=== PATIENT | male | born 1950 | race Two or more races ===

== ENCOUNTER 2016-05-09 17:05 | Inpatient (IN) | payer BC, MEDICARE ==
[~2016-05-09] VITALS: Ht 165.1 cm; Wt 62.6 kg
[2016-05-09 17:50] VITALS: BP 132/70
[2016-05-09 18:03] LABS: BASOPHILS # (AUTO) 0.1 /CMM (0.0-0.2); BASOPHILS % (AUTO) 0.7 % (0.0-2.0); DIFF TOTAL % 100 %; EOSINOPHILS # (AUTO) 0.1 /CMM (0.0-0.7); EOSINOPHILS % (AUTO) 1.5 % (0.0-6.0); HEMATOCRIT 31 % (39-51); LYMPHOCYTES # (AUTO) 1.3 /CMM (0.8-4.8); LYMPHOCYTES % (AUTO) 13.9 % (20.0-44.0); MEAN CORPUSCULAR HEMOGLOBIN 29 PG (26.0-33.0); MEAN CORPUSCULAR HGB CONC 33 g/dl (31.0-36.0); MEAN CORPUSCULAR VOLUME 89 fL (80-96); MONOCYTES # (AUTO) 0.8 /CMM (0.1-1.30); MONOCYTES % (AUTO) 8.2 % (2.0-12.0); NEUTROPHILS # (AUTO) 7.1 /CMM (1.8-8.9); NEUTROPHILS % (AUTO) 75.7 % (43.0-81.0); PLATELET COUNT (AUTO) 565 /CMM (150-450); RED BLOOD CELL COUNT(AUTO) 3.44 MIL/uL (4.5-6.0); WHITE BLOOD COUNT (AUTO) 9.4 K/uL (4.3-11.0)
[2016-05-09 18:06] LABS: ALBUMIN 2.7 g/dL (3.4-5.0); BILIRUBIN,DIRECT 0.1 mg/dL (0.0-0.2); BILIRUBIN,TOTAL 0.6 mg/dL (0.2-1.0); CALCIUM, SERUM 9.2 mg/dL (8.5-10.1); INDIRECT BILIRUBIN 0.5 mg/dL (0.0-1.1); POTASSIUM 4.9 mmol/L (3.5-5.1); TOTAL PROTEIN, SERUM 7.7 g/dL (6.4-8.2)
[2016-05-09 18:07] LABS: INR 1.18 (0.87-1.13); PROTHROMBIN TIME 12.4 SECS (9.5-12.7)
[2016-05-09 18:08] LABS: TROPONIN I 0.026 ng/mL (0.00-0.056)
[2016-05-09 18:17] LABS: CREATININE 9.8 mg/dL (0.6-1.3)
[2016-05-09 18:25] LABS: LACTIC ACID 0.5 mmol/L (0.4-2.0)
[2016-05-09] MEDS ORDERED: ACETAMINOPHEN 650 MG/20.3 ML UDC ONE (18:47)
[2016-05-09] MEDS ORDERED: IV NS 0.9% 1,000 ML ONE (18:47)
[2016-05-09] MEDS ORDERED: IV SET PRIMARY 1 EA INFUS.SET MC ONE (18:47)
[2016-05-09] MEDS ORDERED: ACETAMINOPHEN ES 500 MG TABLET PO ONE (19:00)
[2016-05-09] MEDS ORDERED: VANCOMYCIN 1 GM in IV D5W 250 ML IV ONE (19:00)
[2016-05-09] MEDS ORDERED: PIPERACILLIN /TAZOBACTAM 3.375 G in IV D5W 50 ML IV ONE (19:00)
[2016-05-09] MEDS ORDERED: IV NS 0.9% 1,000 ML BAG IV ONE (19:00)
[2016-05-09] MEDS ORDERED: ACETAMINOPHEN 160 MG/5 ML GT ONE (19:00)
[2016-05-09] MEDS ORDERED: PIPERACILLIN /TAZOBACTAM 2.25 G in IV D5W 50 ML IV ONE (19:00)
[2016-05-09] MEDS ORDERED: IV SET PRIMARY PUMP SET 1 EA INFUS.SET MC ONE ×2 (19:40→23:36)
[2016-05-09] MEDS ORDERED: ACETAMINOPHEN 325 MG TABLET PO PRN (20:00)
[2016-05-09] MEDS ORDERED: VANCOMYCIN 1 GM in IV D5W 250 ML IV PRN (20:00)
[2016-05-09] MEDS ORDERED: ZOLPIDEM TARTRATE 5 MG TABLET PO PRN (20:00)
[2016-05-09] MEDS ORDERED: HYDROCODONE/APAP 5/325MG 1 EACH TABLET PO PRN (20:00)
[2016-05-09] MEDS ORDERED: Z GUARD REMEDY 2 OZ OINT TP PRN (20:00)
[2016-05-09] MEDS ORDERED: ONDANSETRON HCL/PF 4 MG/2 ML VIAL IVP PRN (20:00)
[2016-05-09] MEDS ORDERED: FEE PK DOSING 1 MIN EA MC ONE (20:17)
[2016-05-09 20:30] VITALS: BP 135/65
[2016-05-09] MEDS ORDERED: FOLI1TAB16 PO (21:06)
[2016-05-09] MEDS ORDERED: EPOE1VIA IJ (21:06)
[2016-05-09] MEDS ORDERED: DOXA2TAB2 PO (21:06)
[2016-05-09] MEDS ORDERED: SEVE0.8P PO (21:06)
[2016-05-09] MEDS ORDERED: VALS160T24 PO (21:06)
[2016-05-09] MEDS ORDERED: CLON0.1T PO (21:06)
[2016-05-09] MEDS ORDERED: PANT40SU2 GT (21:06)
[2016-05-09] MEDS ORDERED: PHEN180S18 MM (21:06)
[2016-05-09] MEDS ORDERED: SENN8.6T6 PO (21:06)
[2016-05-09] MEDS ORDERED: PHEN177S31 MM (21:06)
[2016-05-09] MEDS ORDERED: LACT1CAP69 PO (21:06)
[2016-05-09] MEDS ORDERED: OXYC5TAB3 PO (21:06)
[2016-05-09] MEDS ORDERED: HYDR-4077 PO (21:06)
[2016-05-09] MEDS ORDERED: INSU100C10 SQ (21:06)
[2016-05-09] MEDS ORDERED: METO25TA6 PO (21:06)
[2016-05-09] MEDS ORDERED: LEVE100S2 PO (21:06)
[2016-05-09] MEDS ORDERED: PROT946L PO (21:06)
[2016-05-09] MEDS ORDERED: INSU3INS6 SUBCUT (21:06)
[2016-05-09] MEDS ORDERED: AMLO5TAB2 PO (21:06)
[2016-05-09] MEDS ORDERED: NUTR100037 PO (21:18)
[2016-05-09] MEDS ORDERED: DEXTROSE 50%-WATER 50 ML DISP.SYRIN IV PRN (22:00)
[2016-05-09] MEDS ORDERED: RENAL NOVASOURCE 1,000 ML BOTTLE GT PRN (22:30)
[2016-05-09] MEDS ORDERED: IV NS 0.9% 250 ML IV ONE (23:36)
[2016-05-09] MEDS ORDERED: SECONDARY IV SET 1 EA INFUS.SET MC ONE (23:36)
[2016-05-09] MEDS: PIPERACILLIN /TAZOBACTAM 2.25 G in IV D5W 50 ML IV SCH (23:44)
[2016-05-09] MEDS: BLOOD SUGAR DIAGNOSTIC 1 EACH STRIP IN SCH (23:53)
[2016-05-10] VITALS (7 sets, daily range): BP systolic 135–162; BP diastolic 62–83
[2016-05-10] MEDS ORDERED: PIPERACILLIN /TAZOBACTAM 4.5 G in IV D5W 50 ML IV SCH ×2
[2016-05-10] MEDS: INSULIN REGULAR, HUMAN 100 UNIT/ML 3 ML VIAL SQ PRN ×4 (00:05→17:17)
[2016-05-10] MEDS: BLOOD SUGAR DIAGNOSTIC 1 EACH STRIP IN SCH ×3 (05:18→17:19)
[2016-05-10] MEDS: PIPERACILLIN /TAZOBACTAM 2.25 G in IV D5W 50 ML IV SCH ×3 (05:18→17:16)
[2016-05-10 07:42] LABS: BASOPHILS % (AUTO) 0.5 % (0.0-2.0); DIFF TOTAL % 100 %; EOSINOPHILS # (AUTO) 0.3 /CMM (0.0-0.7); HEMATOCRIT 29 % (39-51); HEMOGLOBIN 9.5 g/dL (13.5-17.5); LYMPHOCYTES # (AUTO) 0.8 /CMM (0.8-4.8); MEAN CORPUSCULAR HEMOGLOBIN 29 PG (26.0-33.0); MEAN CORPUSCULAR HGB CONC 33 g/dl (31.0-36.0); MEAN CORPUSCULAR VOLUME 90 fL (80-96); MONOCYTES # (AUTO) 0.7 /CMM (0.1-1.30); MONOCYTES % (AUTO) 7.3 % (2.0-12.0); NEUTROPHILS # (AUTO) 7.5 /CMM (1.8-8.9); NEUTROPHILS % (AUTO) 80.2 % (43.0-81.0); PLATELET COUNT (AUTO) 494 /CMM (150-450); RED BLOOD CELL COUNT(AUTO) 3.23 MIL/uL (4.5-6.0); WHITE BLOOD COUNT (AUTO) 9.4 K/uL (4.3-11.0)
[2016-05-10 08:18] LABS: CALCIUM, SERUM 8.8 mg/dL (8.5-10.1); POTASSIUM 4.7 mmol/L (3.5-5.1)
[2016-05-10 08:20] LABS: CREATININE 10.1 mg/dL (0.6-1.3)
[2016-05-10 08:29] LABS: PHOSPHORUS 9.3 mg/dL (2.5-4.9)
[2016-05-10] MEDS ORDERED: LEVETIRACETAM SOL (5 ML) 100 MG/ML UDC PO SCH (09:00)
[2016-05-10] MEDS: SEVELAMER CARBONATE 0.8 GM POWD.PACK PO SCH ×3 (09:23→17:15)
[2016-05-10] MEDS: SENNOSIDES 8.6 MG TABLET PO SCH (09:23)
[2016-05-10] MEDS: FOLIC ACID 1 MG TABLET PO SCH (09:23)
[2016-05-10] MEDS: PANTOPRAZOLE 40 MG VIAL IV SCH (09:23)
[2016-05-10] MEDS: hydrALAZINE HCL 50 MG TABLET PO SCH ×3 (09:24→17:16)
[2016-05-10] MEDS: AMLODIPINE BESYLATE 5 MG TABLET PO SCH (09:24)
[2016-05-10] MEDS ORDERED: Z GUARD REMEDY 2 OZ OINT TP PRN (10:00)
[2016-05-10] MEDS ORDERED: RENAL NOVASOURCE 1,000 ML BOTTLE GT PRN ×2 (10:00→19:00)
[2016-05-10] MEDS: HYDROGEL DRESSING 90 GM TUBE TP SCH (12:12)
[2016-05-10] MEDS: LEVETIRACETAM SOL (5 ML) 100 MG/ML UDC GT SCH ×2 (12:12→21:45)
[2016-05-10] MEDS: Z GUARD REMEDY 2 OZ OINT TP SCH (17:16)
[2016-05-10] MEDS: LACTOBACILLUS RHAMNOSUS GG 1 EACH CAP.SPRINK GT SCH (18:49)
[2016-05-11] VITALS (7 sets, daily range): BP systolic 116–160; BP diastolic 55–83
[2016-05-11] MEDS ORDERED: IV NS 0.9% 250 ML IV ONE (00:08)
[2016-05-11] MEDS: PIPERACILLIN /TAZOBACTAM 2.25 G in IV D5W 50 ML IV SCH ×4 (00:18→20:57)
[2016-05-11] MEDS: BLOOD SUGAR DIAGNOSTIC 1 EACH STRIP IN SCH ×5 (00:18→23:11)
[2016-05-11] MEDS: INSULIN REGULAR, HUMAN 100 UNIT/ML 3 ML VIAL SQ PRN ×4 (00:24→23:15)
[2016-05-11] MEDS: CLONIDINE HCL 0.1 MG TABLET PO PRN (06:21)
[2016-05-11] MEDS ORDERED: SECONDARY IV SET 1 EA INFUS.SET MC ONE (07:25)
[2016-05-11] MEDS: VANCOMYCIN 500 MG in IV D5W 100 ML IV PRN (07:26)
[2016-05-11 07:51] LABS: CALCIUM, SERUM 8.6 mg/dL (8.5-10.1); CREATININE 7.4 mg/dL (0.6-1.3); POTASSIUM 4.2 mmol/L (3.5-5.1)
[2016-05-11] MEDS: LEVETIRACETAM SOL (5 ML) 100 MG/ML UDC GT SCH ×2 (09:01→20:57)
[2016-05-11] MEDS: FOLIC ACID 1 MG TABLET PO SCH (09:01)
[2016-05-11] MEDS: SENNOSIDES 8.6 MG TABLET PO SCH (09:01)
[2016-05-11] MEDS: LACTOBACILLUS RHAMNOSUS GG 1 EACH CAP.SPRINK GT SCH ×2 (09:01→17:44)
[2016-05-11] MEDS: SEVELAMER CARBONATE 0.8 GM POWD.PACK PO SCH ×3 (09:01→17:44)
[2016-05-11] MEDS: HYDROGEL DRESSING 90 GM TUBE TP SCH (09:02)
[2016-05-11] MEDS: hydrALAZINE HCL 50 MG TABLET PO SCH ×3 (09:02→17:44)
[2016-05-11] MEDS: AMLODIPINE BESYLATE 5 MG TABLET PO SCH (09:02)
[2016-05-11] MEDS: PANTOPRAZOLE 40 MG VIAL IV SCH (09:03)
[2016-05-11] MEDS: Z GUARD REMEDY 2 OZ OINT TP SCH ×2 (09:04→17:44)
[2016-05-12] VITALS (7 sets, daily range): BP systolic 109–186; BP diastolic 53–80
[2016-05-12] MEDS ORDERED: IV D5W 100 ML IV ONE (00:31)
[2016-05-12] MEDS ORDERED: VANCOMYCIN 1 GM VIAL ONE (00:31)
[2016-05-12] MEDS: VANCOMYCIN 500 MG in IV D5W 100 ML IV PRN (01:12)
[2016-05-12] MEDS: PIPERACILLIN /TAZOBACTAM 2.25 G in IV D5W 50 ML IV SCH ×4 (03:00→17:09)
[2016-05-12] MEDS: BLOOD SUGAR DIAGNOSTIC 1 EACH STRIP IN SCH ×3 (05:19→17:16)
[2016-05-12] MEDS: INSULIN REGULAR, HUMAN 100 UNIT/ML 3 ML VIAL SQ PRN ×3 (05:21→17:11)
[2016-05-12] MEDS: CLONIDINE HCL 0.1 MG TABLET PO PRN (05:21)
[2016-05-12 07:50] LABS: POTASSIUM 3.8 mmol/L (3.5-5.1)
[2016-05-12] MEDS: LEVETIRACETAM SOL (5 ML) 100 MG/ML UDC GT SCH (08:05)
[2016-05-12] MEDS: AMLODIPINE BESYLATE 5 MG TABLET PO SCH (08:05)
[2016-05-12] MEDS: hydrALAZINE HCL 50 MG TABLET PO SCH ×3 (08:05→16:29)
[2016-05-12] MEDS: SEVELAMER CARBONATE 0.8 GM POWD.PACK PO SCH ×3 (08:06→16:29)
[2016-05-12] MEDS: FOLIC ACID 1 MG TABLET PO SCH (08:06)
[2016-05-12] MEDS: PANTOPRAZOLE 40 MG VIAL IV SCH (08:06)
[2016-05-12] MEDS: LACTOBACILLUS RHAMNOSUS GG 1 EACH CAP.SPRINK GT SCH ×2 (08:06→16:29)
[2016-05-12] MEDS: SENNOSIDES 8.6 MG TABLET PO SCH (08:06)
[2016-05-12] MEDS: HYDROGEL DRESSING 90 GM TUBE TP SCH (08:15)
[2016-05-12] MEDS: Z GUARD REMEDY 2 OZ OINT TP SCH ×2 (08:16→16:35)
[2016-05-12] MEDS ORDERED: VANCOMYCIN 1 GM in IV D5W 250 ML IV PRN (09:00)
== END 2016-05-12 19:06 | DRG 871 ==
LOC: ER 17:07 → TELE1 19:28
PROVIDERS: ADMIT Internal Medicine; ATTEND Internal Medicine
PROC: 5A1945Z Respiratory Ventilation, 24-96 Consecutive Hours (ICD-10-PCS; principal; 2016-05-09)
PROC: 5A1D60Z (ICD-10-PCS; 2016-05-10)
DX: A41.9 Sepsis, unspecified organism (principal); N18.6 End stage renal disease; G93.40 Encephalopathy, unspecified; R53.2 Functional quadriplegia; I12.0 Hypertensive chronic kidney disease with stage 5 chronic kidney disease or end stage renal disease; E44.0 Moderate protein-calorie malnutrition; J96.11 Chronic respiratory failure with hypoxia; Z99.11 Dependence on respirator [ventilator] status; Z99.2 Dependence on renal dialysis; L89.152 Pressure ulcer of sacral region, stage 2; E88.09 Other disorders of plasma-protein metabolism, not elsewhere classified; D63.8 Anemia in other chronic diseases classified elsewhere; D63.1 Anemia in chronic kidney disease; E11.22 Type 2 diabetes mellitus with diabetic chronic kidney disease; E78.5 Hyperlipidemia, unspecified; K21.9 Gastro-esophageal reflux disease without esophagitis; R13.10 Dysphagia, unspecified; Z93.1 Gastrostomy status; F09 Unspecified mental disorder due to known physiological condition; Z86.73 Personal history of transient ischemic attack (TIA), and cerebral infarction without residual deficits; Q78.9 Osteochondrodysplasia, unspecified; Z68.23 Body mass index [BMI] 23.0-23.9, adult; Z93.0 Tracheostomy status; R65.20 Severe sepsis without septic shock
CPT/HCPCS: 31720; 36415; 71010-TC; 80048-TC; 80061-TC; 80076-TC; 80202-TC; 82962-TC; 83605-TC; 83735-TC; 84100-TC; 84484-TC; 85025-TC; 85730-TC; 87040-TC; 87081-TC; 87400; 90935-TC; 94003-TC; A4606; A6248; A6253; C9113; J1815; J1953; J2543; J3370; J7030; J7050; J7060; Z7610

== ENCOUNTER 2016-05-27 20:37 | Inpatient (IN) | payer BC, MEDICARE ==
[~2016-05-27] VITALS: Ht 172.7 cm; Wt 65.3 kg
[~2016-05-27 20:37] MED LIST: AMLO5TAB2 PO; CLON0.1T PO; DOXA2TAB2 PO; EPOE1VIA IJ; FOLI1TAB16 PO; HYDR-4077 PO; INSU100C10 SQ; INSU3INS6 SUBCUT; LACT1CAP69 PO; LEVE100S2 PO; METO25TA6 PO; NUTR100037 PO; OXYC5TAB3 PO; PANT40SU2 GT; PHEN177S31 MM; PHEN180S18 MM; PROT946L PO; SENN8.6T6 PO; SEVE0.8P PO; VALS160T24 PO
[2016-05-27 21:10] LABS: BASOPHILS % (AUTO) 0.4 % (0.0-2.0); DIFF TOTAL % 100 %; EOSINOPHILS # (AUTO) 0.1 /CMM (0.0-0.7); EOSINOPHILS % (AUTO) 2.3 % (0.0-6.0); HEMATOCRIT 29 % (39-51); HEMOGLOBIN 9.7 g/dL (13.5-17.5); LYMPHOCYTES # (AUTO) 0.7 /CMM (0.8-4.8); LYMPHOCYTES % (AUTO) 10.7 % (20.0-44.0); MEAN CORPUSCULAR HEMOGLOBIN 30 PG (26.0-33.0); MEAN CORPUSCULAR HGB CONC 33 g/dl (31.0-36.0); MEAN CORPUSCULAR VOLUME 90 fL (80-96); MONOCYTES # (AUTO) 0.3 /CMM (0.1-1.30); MONOCYTES % (AUTO) 5.4 % (2.0-12.0); NEUTROPHILS # (AUTO) 5.1 /CMM (1.8-8.9); NEUTROPHILS % (AUTO) 81.2 % (43.0-81.0); PLATELET COUNT (AUTO) 285 /CMM (150-450); RED BLOOD CELL COUNT(AUTO) 3.28 MIL/uL (4.5-6.0); WHITE BLOOD COUNT (AUTO) 6.2 K/uL (4.3-11.0)
[2016-05-27 21:17] VITALS: BP 145/66
[2016-05-27 21:21] LABS: CALCIUM, SERUM 9.9 mg/dL (8.5-10.1); POTASSIUM 3.7 mmol/L (3.5-5.1)
[2016-05-27 21:25] LABS: INR 1.01 (0.87-1.13); PROTHROMBIN TIME 10.6 SECS (9.5-12.7)
[2016-05-27] MEDS ORDERED: Z GUARD REMEDY 2 OZ OINT TP PRN (21:30)
[2016-05-27] MEDS ORDERED: MORPHINE SULFATE INJ 2 MG/ML DISP.SYRIN IV PRN (21:30)
[2016-05-27] MEDS ORDERED: MAGNESIUM HYDROXIDE 30 ML UDC PO PRN (21:30)
[2016-05-27] MEDS ORDERED: ACETAMINOPHEN 325 MG TABLET PO PRN (21:30)
[2016-05-27] MEDS ORDERED: ONDANSETRON HCL/PF 4 MG/2 ML VIAL IVP PRN (21:30)
[2016-05-27] MEDS ORDERED: MAG HYDROX/AL HYDROX/SIMETH 30 ML UDC PO PRN (21:30)
[2016-05-27] MEDS ORDERED: ZOLPIDEM TARTRATE 5 MG TABLET PO PRN (22:00)
[2016-05-27] MEDS ORDERED: EPOETIN ALFA (10,000 UNIT) 10,000 UNIT/ML VIAL IJ SCH (22:00)
[2016-05-27] MEDS ORDERED: CLONIDINE HCL 0.1 MG TABLET PO SCH (22:00)
[2016-05-27] MEDS ORDERED: DEXTROSE 50%-WATER 50 ML DISP.SYRIN IV PRN (22:00)
[2016-05-27] MEDS ORDERED: VALSARTAN 80 MG TABLET PO ONE (22:00)
[2016-05-27 22:09] LABS: CREATINE KINASE MB 1.3 ng/mL (0-3.6); THYROID STIMULATING HORMONE 2.667 uIU/mL (0.358-3.74)
[2016-05-27 22:40] VITALS: BP 157/77
[2016-05-28] MEDS ORDERED: IV D5/0.45 NACL 1,000 ML IV ONE (01:30)
[2016-05-28] MEDS ORDERED: IV SET PRIMARY PUMP SET 1 EA INFUS.SET MC ONE (01:30)
[2016-05-28] MEDS ORDERED: VALSARTAN 80 MG TABLET ONE (01:30)
[2016-05-28] MEDS ORDERED: METOPROLOL TARTRATE 25 MG TABLET ONE (01:31)
[2016-05-28] MEDS: IV D5/0.45 NACL 1,000 ML IV PRN ×2 (01:40→17:34)
[2016-05-28] MEDS: METOPROLOL TARTRATE 25 MG TABLET PO SCH ×3 (01:40→17:26)
[2016-05-28] MEDS ORDERED: hydrALAZINE HCL 50 MG TABLET ONE (04:58)
[2016-05-28] MEDS ORDERED: CLONIDINE HCL 0.1 MG TABLET ONE (04:58)
[2016-05-28] MEDS: hydrALAZINE HCL 50 MG TABLET PO SCH ×3 (05:04→17:26)
[2016-05-28 05:11] VITALS: BP 182/81
[2016-05-28] MEDS: BLOOD SUGAR DIAGNOSTIC 1 EACH STRIP IN SCH ×4 (05:51→17:25)
[2016-05-28] MEDS: INSULIN REGULAR, HUMAN 100 UNIT/ML 3 ML VIAL SQ PRN ×2 (05:59→13:37)
[2016-05-28 06:21] VITALS: BP 141/66
[2016-05-28 07:16] LABS: BASOPHILS % (AUTO) 0.4 % (0.0-2.0); DIFF TOTAL % 100 %; EOSINOPHILS # (AUTO) 0.1 /CMM (0.0-0.7); EOSINOPHILS % (AUTO) 2.4 % (0.0-6.0); HEMATOCRIT 27 % (39-51); HEMOGLOBIN 8.8 g/dL (13.5-17.5); LYMPHOCYTES # (AUTO) 0.6 /CMM (0.8-4.8); LYMPHOCYTES % (AUTO) 10.1 % (20.0-44.0); MEAN CORPUSCULAR HEMOGLOBIN 29 PG (26.0-33.0); MEAN CORPUSCULAR HGB CONC 33 g/dl (31.0-36.0); MEAN CORPUSCULAR VOLUME 88 fL (80-96); MONOCYTES # (AUTO) 0.4 /CMM (0.1-1.30); MONOCYTES % (AUTO) 5.8 % (2.0-12.0); NEUTROPHILS # (AUTO) 4.9 /CMM (1.8-8.9); NEUTROPHILS % (AUTO) 81.3 % (43.0-81.0); PLATELET COUNT (AUTO) 262 /CMM (150-450); RED BLOOD CELL COUNT(AUTO) 3.01 MIL/uL (4.5-6.0)
[2016-05-28 07:21] LABS: INR 1.03 (0.87-1.13); PROTHROMBIN TIME 11.1 SECS (9.5-12.7)
[2016-05-28] MEDS: PANTOPRAZOLE 40 MG/PACK PACK GT SCH (07:30)
[2016-05-28 08:01] LABS: ALBUMIN 2.4 g/dL (3.4-5.0); BILIRUBIN,TOTAL 0.4 mg/dL (0.2-1.0); CALCIUM, SERUM 9.2 mg/dL (8.5-10.1); CREATININE 6.1 mg/dL (0.6-1.3); PHOSPHORUS 3.8 mg/dL (2.5-4.9); POTASSIUM 3.6 mmol/L (3.5-5.1); TOTAL PROTEIN, SERUM 6.5 g/dL (6.4-8.2)
[2016-05-28 08:06] LABS: THYROID STIMULATING HORMONE 2.652 uIU/mL (0.358-3.74)
[2016-05-28] MEDS ORDERED: PANTOPRAZOLE 40 MG TABLET.DR PO SCH (08:07)
[2016-05-28] MEDS: SEVELAMER CARBONATE 0.8 GM POWD.PACK PO SCH (09:27)
[2016-05-28] MEDS: PHENOL/SODIUM PHENOLATE 1 BOTTLE MM SCH (09:27)
[2016-05-28] MEDS: LEVETIRACETAM SOL (5 ML) 100 MG/ML UDC PO SCH ×2 (09:27→17:25)
[2016-05-28] MEDS: FOLIC ACID 1 MG TABLET PO SCH (09:28)
[2016-05-28] MEDS: AMLODIPINE BESYLATE 5 MG TABLET PO SCH (09:28)
[2016-05-28] MEDS: CLONIDINE HCL 0.1 MG TABLET PO SCH (09:30)
[2016-05-28] MEDS: SENNOSIDES 8.6 MG TABLET PO SCH (09:30)
[2016-05-28 12:00] VITALS: BP 105/53
[2016-05-28] MEDS ORDERED: ALTEPLASE CATHFLO 2 MG/VIAL IV ONE (13:00)
[2016-05-28 16:00] VITALS: BP 144/63
[2016-05-28] MEDS: DOXAZOSIN MESYLATE (1 MG) 1 MG TABLET PO SCH (17:25)
[2016-05-28 20:00] VITALS: BP 143/74
[2016-05-28] MEDS: INSULIN DETEMIR 100 UNIT/ML CARTRIDGE SQ SCH (21:26)
[2016-05-29] VITALS (7 sets, daily range): BP systolic 104–170; BP diastolic 54–76
[2016-05-29] MEDS: INSULIN REGULAR, HUMAN 100 UNIT/ML 3 ML VIAL SQ PRN ×3 (01:00→23:18)
[2016-05-29] MEDS: BLOOD SUGAR DIAGNOSTIC 1 EACH STRIP IN SCH ×5 (06:00→23:17)
[2016-05-29 06:54] LABS: BASOPHILS % (AUTO) 0.4 % (0.0-2.0); DIFF TOTAL % 100 %; EOSINOPHILS # (AUTO) 0.1 /CMM (0.0-0.7); EOSINOPHILS % (AUTO) 0.7 % (0.0-6.0); HEMATOCRIT 25 % (39-51); HEMOGLOBIN 8.2 g/dL (13.5-17.5); LYMPHOCYTES # (AUTO) 0.8 /CMM (0.8-4.8); LYMPHOCYTES % (AUTO) 9.4 % (20.0-44.0); MEAN CORPUSCULAR HEMOGLOBIN 29 PG (26.0-33.0); MEAN CORPUSCULAR HGB CONC 33 g/dl (31.0-36.0); MEAN CORPUSCULAR VOLUME 90 fL (80-96); MONOCYTES # (AUTO) 0.5 /CMM (0.1-1.30); MONOCYTES % (AUTO) 5.8 % (2.0-12.0); NEUTROPHILS # (AUTO) 7.5 /CMM (1.8-8.9); NEUTROPHILS % (AUTO) 83.7 % (43.0-81.0); PLATELET COUNT (AUTO) 237 /CMM (150-450); RED BLOOD CELL COUNT(AUTO) 2.83 MIL/uL (4.5-6.0)
[2016-05-29] MEDS: PANTOPRAZOLE 40 MG/PACK PACK GT SCH (08:23)
[2016-05-29] MEDS: SEVELAMER CARBONATE 0.8 GM POWD.PACK PO SCH (08:48)
[2016-05-29] MEDS: LEVETIRACETAM SOL (5 ML) 100 MG/ML UDC PO SCH ×2 (08:48→17:33)
[2016-05-29] MEDS: SENNOSIDES 8.6 MG TABLET PO SCH (08:48)
[2016-05-29] MEDS: CLONIDINE HCL 0.1 MG TABLET PO SCH (08:49)
[2016-05-29] MEDS: FOLIC ACID 1 MG TABLET PO SCH (08:49)
[2016-05-29] MEDS: METOPROLOL TARTRATE 25 MG TABLET PO SCH ×2 (08:50→17:34)
[2016-05-29] MEDS: AMLODIPINE BESYLATE 5 MG TABLET PO SCH (08:50)
[2016-05-29] MEDS: hydrALAZINE HCL 50 MG TABLET PO SCH ×3 (08:50→17:34)
[2016-05-29] MEDS: PHENOL/SODIUM PHENOLATE 1 BOTTLE MM SCH (08:51)
[2016-05-29] MEDS: IV D5/0.45 NACL 1,000 ML IV PRN (09:02)
[2016-05-29 10:05] LABS: CALCIUM, SERUM 8.9 mg/dL (8.5-10.1); CREATININE 5.1 mg/dL (0.6-1.3); POTASSIUM 3.8 mmol/L (3.5-5.1)
[2016-05-29] MEDS ORDERED: DIATR MEGLU/DIATRIZOATE SODIUM 30 ML BOTTLE (GASTROGRAPHIN) ONE (12:03)
[2016-05-29] MEDS: DOXAZOSIN MESYLATE (1 MG) 1 MG TABLET PO SCH (17:33)
[2016-05-29] MEDS ORDERED: RENAL NOVASOURCE 1,000 ML BOTTLE GT SCH (19:00)
[2016-05-29] MEDS ORDERED: RENAL NOVASOURCE 1,000 ML BOTTLE ONE (21:54)
[2016-05-29] MEDS: INSULIN DETEMIR 100 UNIT/ML CARTRIDGE SQ SCH (22:14)
[2016-05-29] MEDS: RENAL NOVASOURCE 1,000 ML BOTTLE GT PRN (22:19)
[2016-05-30] VITALS (7 sets, daily range): BP systolic 100–162; BP diastolic 51–72
[2016-05-30] MEDS: IV D5/0.45 NACL 1,000 ML IV PRN (01:42)
[2016-05-30] MEDS: BLOOD SUGAR DIAGNOSTIC 1 EACH STRIP IN SCH ×3 (05:42→17:33)
[2016-05-30 06:25] LABS: CALCIUM, SERUM 9.3 mg/dL (8.5-10.1); CREATININE 4.6 mg/dL (0.6-1.3); PHOSPHORUS 3.2 mg/dL (2.5-4.9); POTASSIUM 3.3 mmol/L (3.5-5.1)
[2016-05-30 06:44] LABS: EOSINOPHILS # (AUTO) 0.1 /CMM (0.0-0.7); EOSINOPHILS % (AUTO) 2.2 % (0.0-6.0); HEMATOCRIT 28 % (39-51); HEMOGLOBIN 9.4 g/dL (13.5-17.5); LYMPHOCYTES # (AUTO) 0.7 /CMM (0.8-4.8); LYMPHOCYTES % (AUTO) 10.1 % (20.0-44.0); MEAN CORPUSCULAR HEMOGLOBIN 30 PG (26.0-33.0); MEAN CORPUSCULAR HGB CONC 33 g/dl (31.0-36.0); MEAN CORPUSCULAR VOLUME 89 fL (80-96); MONOCYTES # (AUTO) 0.6 /CMM (0.1-1.30); MONOCYTES % (AUTO) 9.2 % (2.0-12.0); NEUTROPHILS # (AUTO) 5.2 /CMM (1.8-8.9); NEUTROPHILS % (AUTO) 78.5 % (43.0-81.0); PLATELET COUNT (AUTO) 229 /CMM (150-450); RED BLOOD CELL COUNT(AUTO) 3.19 MIL/uL (4.5-6.0); WHITE BLOOD COUNT (AUTO) 6.6 K/uL (4.3-11.0)
[2016-05-30 07:04] LABS: DIFF TOTAL % 100 %
[2016-05-30] MEDS: PANTOPRAZOLE 40 MG/PACK PACK GT SCH (08:16)
[2016-05-30] MEDS: LEVETIRACETAM SOL (5 ML) 100 MG/ML UDC PO SCH ×2 (08:43→17:34)
[2016-05-30] MEDS: SEVELAMER CARBONATE 0.8 GM POWD.PACK PO SCH (08:44)
[2016-05-30] MEDS: FOLIC ACID 1 MG TABLET PO SCH (08:44)
[2016-05-30] MEDS: AMLODIPINE BESYLATE 5 MG TABLET PO SCH (08:44)
[2016-05-30] MEDS: SENNOSIDES 8.6 MG TABLET PO SCH (08:44)
[2016-05-30] MEDS: CLONIDINE HCL 0.1 MG TABLET PO SCH (08:44)
[2016-05-30] MEDS: hydrALAZINE HCL 50 MG TABLET PO SCH ×3 (08:45→17:34)
[2016-05-30] MEDS: METOPROLOL TARTRATE 25 MG TABLET PO SCH ×2 (08:45→17:34)
[2016-05-30] MEDS: PHENOL/SODIUM PHENOLATE 1 BOTTLE MM SCH (08:50)
[2016-05-30] MEDS: INSULIN REGULAR, HUMAN 100 UNIT/ML 3 ML VIAL SQ PRN ×2 (12:36→17:41)
[2016-05-30] MEDS: DOXAZOSIN MESYLATE (1 MG) 1 MG TABLET PO SCH (17:33)
[2016-05-30] MEDS ORDERED: POTASSIUM CHLORIDE 20 MEQ POWDER PACKET GT ONE (19:30)
[2016-05-30] MEDS: INSULIN DETEMIR 100 UNIT/ML CARTRIDGE SQ SCH (22:13)
[2016-05-30] MEDS: RENAL NOVASOURCE 1,000 ML BOTTLE GT PRN (22:27)
[2016-05-31] VITALS (7 sets, daily range): BP systolic 129–222; BP diastolic 54–86
[2016-05-31] MEDS: BLOOD SUGAR DIAGNOSTIC 1 EACH STRIP IN SCH ×5 (00:52→23:28)
[2016-05-31] MEDS: INSULIN REGULAR, HUMAN 100 UNIT/ML 3 ML VIAL SQ PRN (00:53)
[2016-05-31] MEDS: IV D5/0.45 NACL 1,000 ML IV PRN (06:36)
[2016-05-31 06:55] LABS: BASOPHILS % (AUTO) 0.3 % (0.0-2.0); DIFF TOTAL % 100 %; EOSINOPHILS # (AUTO) 0.2 /CMM (0.0-0.7); EOSINOPHILS % (AUTO) 1.9 % (0.0-6.0); HEMATOCRIT 28 % (39-51); HEMOGLOBIN 9.1 g/dL (13.5-17.5); LYMPHOCYTES # (AUTO) 1.4 /CMM (0.8-4.8); LYMPHOCYTES % (AUTO) 15.3 % (20.0-44.0); MEAN CORPUSCULAR HEMOGLOBIN 30 PG (26.0-33.0); MEAN CORPUSCULAR HGB CONC 33 g/dl (31.0-36.0); MEAN CORPUSCULAR VOLUME 90 fL (80-96); MONOCYTES # (AUTO) 0.7 /CMM (0.1-1.30); MONOCYTES % (AUTO) 7.7 % (2.0-12.0); NEUTROPHILS # (AUTO) 6.7 /CMM (1.8-8.9); NEUTROPHILS % (AUTO) 74.8 % (43.0-81.0); PLATELET COUNT (AUTO) 279 /CMM (150-450); RED BLOOD CELL COUNT(AUTO) 3.07 MIL/uL (4.5-6.0)
[2016-05-31 07:07] LABS: INR 1.04 (0.87-1.13); PROTHROMBIN TIME 11.2 SECS (9.5-12.7)
[2016-05-31 07:27] LABS: CALCIUM, SERUM 9.2 mg/dL (8.5-10.1); CREATININE 5.4 mg/dL (0.6-1.3); POTASSIUM 4.6 mmol/L (3.5-5.1)
[2016-05-31] MEDS: AMLODIPINE BESYLATE 5 MG TABLET PO SCH (09:00)
[2016-05-31] MEDS: CLONIDINE HCL 0.1 MG TABLET PO SCH ×2 (09:00→21:37)
[2016-05-31] MEDS: hydrALAZINE HCL 50 MG TABLET PO SCH ×4 (09:00→21:36)
[2016-05-31] MEDS: METOPROLOL TARTRATE 25 MG TABLET PO SCH ×3 (09:00→21:36)
[2016-05-31] MEDS: SEVELAMER CARBONATE 0.8 GM POWD.PACK PO SCH (09:00)
[2016-05-31] MEDS: PANTOPRAZOLE 40 MG/PACK PACK GT SCH (09:38)
[2016-05-31] MEDS: PHENOL/SODIUM PHENOLATE 1 BOTTLE MM SCH (09:38)
[2016-05-31] MEDS: SENNOSIDES 8.6 MG TABLET PO SCH (09:38)
[2016-05-31] MEDS: FOLIC ACID 1 MG TABLET PO SCH (09:38)
[2016-05-31] MEDS: LEVETIRACETAM SOL (5 ML) 100 MG/ML UDC PO SCH ×2 (09:40→17:57)
[2016-05-31] MEDS ORDERED: LIDOCAINE HCL/PF 1% 30 ML SDV ONE (15:53)
[2016-05-31] MEDS ORDERED: HEPARIN SODIUM, PORCINE 1,000 UNIT/ML VIAL ONE (15:53)
[2016-05-31] MEDS ORDERED: FENTANYL PF 100MCG/2ML AMPUL ONE (16:06)
[2016-05-31] MEDS: RENAL NOVASOURCE 1,000 ML BOTTLE GT PRN (17:57)
[2016-05-31] MEDS: DOXAZOSIN MESYLATE (1 MG) 1 MG TABLET PO SCH (18:05)
[2016-05-31] MEDS: INSULIN DETEMIR 100 UNIT/ML CARTRIDGE SQ SCH (23:29)
[2016-05-31] MEDS: CEFAZOLIN 1 GM in IV D5W 50 ML IV SCH (23:31)
[2016-06-01] VITALS (7 sets, daily range): BP systolic 138–184; BP diastolic 66–78
[2016-06-01] MEDS ORDERED: CEFAZOLIN 1 GM in IV D5W 50 ML IV SCH (00:35)
[2016-06-01] MEDS: BLOOD SUGAR DIAGNOSTIC 1 EACH STRIP IN SCH ×3 (05:41→18:26)
[2016-06-01] MEDS: INSULIN REGULAR, HUMAN 100 UNIT/ML 3 ML VIAL SQ PRN (05:48)
[2016-06-01] MEDS: PANTOPRAZOLE 40 MG/PACK PACK GT SCH (07:30)
[2016-06-01] MEDS: FOLIC ACID 1 MG TABLET PO SCH (09:22)
[2016-06-01] MEDS: LEVETIRACETAM SOL (5 ML) 100 MG/ML UDC PO SCH ×2 (09:23→17:47)
[2016-06-01] MEDS: SENNOSIDES 8.6 MG TABLET PO SCH (09:23)
[2016-06-01] MEDS: PHENOL/SODIUM PHENOLATE 1 BOTTLE MM SCH (09:23)
[2016-06-01] MEDS: AMLODIPINE BESYLATE 5 MG TABLET PO SCH (09:23)
[2016-06-01] MEDS: SEVELAMER CARBONATE 0.8 GM POWD.PACK PO SCH (09:24)
[2016-06-01] MEDS: CEFAZOLIN 1 GM in IV D5W 50 ML IV SCH (09:55)
[2016-06-01] MEDS: hydrALAZINE HCL 50 MG TABLET PO SCH ×2 (13:00→17:47)
[2016-06-01] MEDS: METOPROLOL TARTRATE 25 MG TABLET PO SCH (17:47)
[2016-06-01] MEDS: DOXAZOSIN MESYLATE (1 MG) 1 MG TABLET PO SCH (17:47)
== END 2016-06-01 20:51 | DRG 314 ==
LOC: ER 20:39 → TELE1 22:16
PROVIDERS: ADMIT Internal Medicine; ATTEND Internal Medicine
DX: T82.41XA Breakdown (mechanical) of vascular dialysis catheter, initial encounter (principal); G93.40 Encephalopathy, unspecified; N18.6 End stage renal disease; R53.2 Functional quadriplegia; E44.0 Moderate protein-calorie malnutrition; I12.0 Hypertensive chronic kidney disease with stage 5 chronic kidney disease or end stage renal disease; Z99.11 Dependence on respirator [ventilator] status; J96.11 Chronic respiratory failure with hypoxia; K21.9 Gastro-esophageal reflux disease without esophagitis; Z93.0 Tracheostomy status; E11.22 Type 2 diabetes mellitus with diabetic chronic kidney disease; D63.8 Anemia in other chronic diseases classified elsewhere; R13.10 Dysphagia, unspecified; E78.5 Hyperlipidemia, unspecified; Y71.2 Prosthetic and other implants, materials and accessory cardiovascular devices associated with adverse incidents; Z79.4 Long term (current) use of insulin; Z99.2 Dependence on renal dialysis; Y83.9 Surgical procedure, unspecified as the cause of abnormal reaction of the patient, or of later complication, without mention of misadventure at the time of the procedure; Y92.89 Other specified places as the place of occurrence of the external cause; F09 Unspecified mental disorder due to known physiological condition; Z68.21 Body mass index [BMI] 21.0-21.9, adult
CPT/HCPCS: 31720; 36415; 71010-TC; 74000-TC; 80048-TC; 80053-TC; 80061-TC; 82553-TC; 82746; 82962-TC; 83540-TC; 83735-TC; 84100-TC; 84439-TC; 84443-TC; 85025-TC; 85610-TC; 85730-TC; 86850-TC; 87081-TC; 90935-TC; 94002-TC; 94003-TC; 99082-TC; A4606; A6402; J0690; J1644; J1815; J1953; J2270; J2405; J2997; J3010; J3490; J7060; Q9963; Z7610

== ENCOUNTER 2016-12-21 05:33 | Emergency (ER) | payer MEDICARE, MEDICAID ==
[~2016-12-21] VITALS: Ht 175.3 cm; Wt 61.2 kg
[~2016-12-21 05:33] MED LIST changes: +EPINEPHRINE (1:10,000) SYRINGE 1 MG/10 ML DISP.SYRIN IVP ONE
--- NOTE | 2016-12-21 05:50 | NUR ---
see paper charting
--- NOTE | 2016-12-21 06:00 | NUR ---
TALKED TO [facility] #[id number] FROM THE [facility] OFFICE AND THEY SAY THIS IS NOT A [facility] CASE
--- NOTE | 2016-12-21 06:02 | NUR ---
[facility] called. Spoke with Santhosh.
--- NOTE | 2016-12-21 06:07 | NUR ---
CALLED DAUGHTER NEO AT [phone]. STATES "I WILL BE THERE"
--- NOTE | 2016-12-21 06:15 | NUR ---
CALLED PT'S FACILITY AT [facility] AND SPOKE TO KEVIN DOTSON WHO PROVIDED PT'S PMD. PHONE NUMBER [phone]
--- NOTE | 2016-12-21 06:20 | NUR ---
CALLED FOR DR. BILLY AT [phone]. DR. ANUSHA GUTIERREZ MEAT MOLDER AND STATES "I DONT KNOW THE PT SO CALL DR. BILLY'S OFFICE AFTER 0900 AND HE WILL BE ABLE TO ANSWER".
--- NOTE | 2016-12-21 08:00 | NUR ---
PATIENT'S CHART HANDED TO NIKO Villela
--- NOTE | 2016-12-21 08:45 | NUR ---
SECUR[facility] CALLED FOR ASSISTANCE TO BEING BODY TO THE [place]. FAMILY MEMBERS AWARE.
--- NOTE | 2016-12-21 10:30 | NUR ---
DR Neo Trevino M.D. CALLED [phone], NOT AVAILABLE. [employer] WILL PAGE HIM.
== END 2016-12-21 06:29 | disposition expired ==
LOC: ER 05:35
DX: I46.9 Cardiac arrest, cause unspecified (principal); E11.9 Type 2 diabetes mellitus without complications; I10 Essential (primary) hypertension; Z79.4 Long term (current) use of insulin; Z99.2 Dependence on renal dialysis
CPT/HCPCS: 82962; 92950; 99285; A6402; J0171